=== PATIENT | female | born 1960 ===

== ENCOUNTER 2019-12-25 08:17 | Day surgery (SDC) | payer OTHER ==
[~2019-12-25 08:17] MED LIST: LEVOTHYROXINE25 MCG PO
== END 2019-12-25 19:50 | disposition home or self-care (01) ==
LOC: CIR.AMB 08:17
PROVIDERS: ATTEND Obstetrics & Gynecology
DX: N84.0 Polyp of corpus uteri (principal); Z20.828 Contact with and (suspected) exposure to other viral communicable diseases